=== PATIENT | male | born 1995 | race African-American/Black ===

== ENCOUNTER 2017-05-30 21:41 | Emergency (ER) | payer OTHER ==
[2017-05-30] MEDS ORDERED: 0.9 % SODIUM CHLORIDE 1,000 ML IV SCH (22:30)
[2017-05-30] MEDS ORDERED: 0.9 % SODIUM CHLORIDE 1,000 ML IV ONE (22:38)
[2017-05-30 22:52] LABS: BASOPHILS % 0.3 (0.0-1.5); EOSINOPHILS % 1.6 % (0.0-6.8); MEAN CORPUSCULAR HEMOGLOBIN 27.7 pg (28.0-34.0); MEAN CORPUSCULAR VOLUME 84.7 fl (80.0-100.0); NEUTROPHILS # 6.4 # k/uL (1.4-7.7)
[2017-05-30 23:06] LABS: eGFR (African) > 60; eGFR (Non-African) > 60
[2017-05-30] MEDS ORDERED: CYCLOBENZAPRINE HCL 5 MG TABLET PO ONE (23:07)
--- NOTE | 2017-05-30 23:19 | ED Physician Documentation ---
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 Patient states while playing in a football game today develop some muscle cramps in aches. Patient states that he believes that he was not drinking as much fluid as he should have been. Patient urine became concentrated. This evening patient developed some of nausea vomiting associated with some increasing muscle cramps and came to the ED to be evaluated.) - ROS CONST: no problems. denies: fever, chills - PAST HX Past History: none Other History: none Surgeries/Procedures: none Allergies/Adverse Reactions: Allergies Allergy/AdvReac Type Severity Reaction Status Date / Time No Known Allergies Allergy Verified 05/30/17 21:57 Home Medications: Ambulatory Orders Medication Instructions Recorded NK [NK] 05/30/17 - SOCIAL HX Smoking History: non-smoker Alcohol Use: occasionally Drug Use: none - FAMILY HX Family History: No - VITAL SIGNS Vital Signs: Vital Signs Temp Pulse Resp BP Pulse Ox 68 16 133/77 99 05/30/17 21:45 05/30/17 21:45 05/30/17 21:45 05/30/17 21:45 - REVIEWED ASSESSMENTS Nursing Assessment Reviewed: Yes Vitals Reviewed: Yes Progress - Progress Progress: Patient was advised to get another 1000cc of NS but he refused. Advised that his CPK was elevated and that he needed to stay very well hydrated to help protect his kidneys. Advised not to practice until he has had a repeated CPK to make sure that it has normalized. ED Results Lab/Radiology - Lab Results Lab Results: Lab Results 05/30/17 05/30/17 22:47 22:47 WBC 8.50 K/ul K/ul (4.00-12.00) RBC 4.63 M/ul M/ul (3.90-5.20) Hgb 12.8 g/dL g/dL (12.0-18.0) Hct 39.2 % % (37.0-53.0) MCV 84.7 fl fl (80.0-100.0) MCH 27.7 pg L pg (28.0-34.0) MCHC 32.7 g/dL g/dL (30.0-36.0) RDW 12.7 % % (11.3-14.3) Plt Count 228 K/mm3 K/mm3 (130-400) Neut % (Auto) 74.9 % % (39.0-79.0) Lymph % (Auto) 18.2 % % (16.0-50.0) Bullitt % (Auto) 4.0 % % (0.0-11.0) Eos % (Auto) 1.6 % % (0.0-6.8) Baso % (Auto) 0.3 (0.0-1.5) Neut # (Auto) 6.4 # k/uL # k/uL (1.4-7.7) Lymph # (Auto) 1.6 # k/uL # k/uL (0.6-4.0) Bullitt # (Auto) 0.3 # k/uL # k/uL (0.0-0.9) Eos # (Auto) 0.1 # k/uL # k/uL (0.0-0.6) Baso # (Auto) 0.0 # k/uL # k/uL (0.0-0.5) Reactive Lymphs % 1.0 % % (0.0-5.0) Reactive Lymphs # 0.1 # k/uL # k/uL (0.0-0.8) Sodium 128 mmol/L L mmol/L (136-145) Potassium 3.8 mmol/L mmol/L (3.5-5.0) Chloride 94 mmol/L L mmol/L (98-110) Carbon Dioxide 26 mmol/L mmol/L (20-32) BUN 15 mg/dL mg/dL (10-26) Creatinine 1.0 mg/dL mg/dL (0.4-1.5) Estimated Creat Clear 143 Est GFR ( Amer) > 60 (60 - ) Est GFR (Non-Af Amer) > 60 (60 - ) Glucose 109 mg/dL H mg/dL (70-99) Calcium 9.3 mg/dL mg/dL (8.5-10.5) Total Bilirubin 0.7 mg/dL mg/dL (0.2-1.2) AST 46 U/L H U/L (0-41) ALT 14 U/L U/L (0-45) Alkaline Phosphatase 59 U/L U/L (46-116) Creatine Kinase 1658 U/L H U/L (0-225) Total Protein 7.7 g/dL g/dL (6.0-8.5) Albumin 5.0 g/dL g/dL (3.0-5.5) - Orders Orders: ED Orders Category Date Time Status Place IV Lock 1T Care 05/30/17 22:29 Active CBC/PLATELET/DIFF Routine Lab 05/30/17 22:47 Completed CMP Routine Lab 05/30/17 22:47 Completed CREATINE KINASE Routine Lab 05/30/17 22:47 Completed URINALYSIS Routine Lab 05/30/17 Ordered 0.9 % Sodium Chloride [Normal Saline] 1,000 ml Med 05/30/17 22:30 Ordered IV .Q1H Cyclobenzaprine HCl [Flexeril] Med 05/30/17 23:07 Discontinued 10 mg PO NOW ONE General Adult Physical Exam - PHYSICAL EXAM GENERAL APPEARANCE: mild distress EENT: eye inspection normal, ENT inspection normal, pharynx normal. No: no signs of dehydration (mucosal membranes dry at fist) NECK: normal inspection, thyroid normal, supple RESPIRATORY: no resp distress, chest non-tender, breath sounds normal. No: wheezes, rales, rhonchi CVS: reg rate & rhythm, heart sounds normal, equal pulses, no murmur, no gallop ABDOMEN: soft, no organomegaly, normal bowel sounds, no abdominal bruit, no distension, non-tender BACK: normal inspection, no CVA tenderness SKIN: warm/dry, normal color EXTREMITIES: normal range of motion, no evidence of injury, no edema, tenderness (mild) NEURO: oriented X3, mood/affect nml, cognition normal Discharge Clincal Impression: Dehydration Rhabdomyolysis Qualifiers: Rhabdomyolysis type: non-traumatic Qualified Code(s): M62.82 - Rhabdomyolysis Referrals: Primary Doctor,No [Primary Care Provider] - 2 Days Additional Instructions: Make sure you are drinking a lot of fluids, enough to keep your urine clear. Drink some sports drink also. 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 No practicing tomorrow. Condition: Stable Disposition: 01 HOME, SELF-CARE Decision to Admit: NO Date of Decison to Admit: 05/31/17 Decision Time: 00:01
[2017-05-31 00:29] VITALS: BP 127/88
== END 2017-05-31 00:15 | disposition home or self-care (01) ==
LOC: ED 21:41
DX: E86.0 Dehydration (principal); M62.82 Rhabdomyolysis
CPT/HCPCS: 80053; 82550; 85025; J7030; 96360; 99283; S1016